=== PATIENT | female | born 1990 ===

== ENCOUNTER 2022-02-22 00:23 | Emergency (ER) | payer SELFPAY ==
--- NOTE | 2022-02-22 02:04 | ER ---
Nurse's Notes [facility] Name: Caroline Baltazar Age: 31 yrs Sex: Female : 1990 Arrival Date: 02/22/2022 Time: 01:03 Bed 20 Private MD: Diagnosis: Abuse of other non-psychoactive substances;Altered mental status, unspecified-RESOLVED Presentation: 02/22 01:36 Chief complaint: EMS states: patient called because she was having some anxiety after ha1 drinking alcohol and chewing chewable [place]. Coronavirus screen:. Ebola Screen: No symptoms or risks identified at this time. Initial Sepsis Screen: Does the patient meet any 2 criteria? No. Patient's initial sepsis screen is negative. Does the patient have a suspected source of infection? No. Patient's initial sepsis screen is negative. Risk Assessment: Do you want to hurt yourself or someone else? Patient reports no desire to harm self or others. Onset of symptoms was February 22, 2022. 01:36 Method Of Arrival: EMS: [facility] ha1 02:00 Acuity: RAMESH 4 ha1 Triage Assessment: 01:56 General: Appears in no apparent distress. comfortable, Behavior is calm, cooperative. ha1 Pain: Denies pain. EENT: No deficits noted. No signs and/or symptoms were reported regarding the EENT system. Neuro: Level of Consciousness is awake, alert, obeys commands, Oriented to person, place, time, situation, Reports anxiety due to alcohol and drug used. Cardiovascular: Patient's skin is warm and dry. Rhythm is sinus tachycardia. Respiratory: Airway is patent Trachea midline Respiratory effort is even, unlabored, Respiratory pattern is regular, symmetrical. GI: No signs and/or symptoms were reported involving the gastrointestinal system. Abdomen is flat, non-distended. : No signs and/or symptoms were reported regarding the genitourinary system. Derm: Skin is normal. Musculoskeletal: Circulation, motion, and sensation intact. Range of motion: intact in all extremities. Historical: - Allergies: 01:56 No Known Allergies; ha1 - Home Meds: 01:56 None [Active]; ha1 - PMHx: 01:56 None; ha1 - Immunization history:: Adult Immunizations up to date. - Family history:: not pertinent. - Social history:: Smoking status: unknown. Screenin:00 Abuse screen: Denies threats or abuse. Denies injuries from another. Nutritional ha1 screening: No deficits noted. Tuberculosis screening: No symptoms or risk factors identified. Fall Risk None identified. Assessment: 02:01 General: see triage. ha1 Vital Signs: 01:36 BP 133 / 65; Pulse 107; Resp 16 S; Temp 98.9; Pulse Ox 97% on R/A; Weight 81.65 kg; ha1 Height 5 ft. 7 in. (170.18 cm); Pain 0/10; 02:01 BP 133 / 65; Pulse 107; Resp 16 S; Pulse Ox 97% on R/A; ha1 01:36 Body Mass Index 28.19 (81.65 kg, 170.18 cm) ha1 ED Course: 01:03 Patient arrived in ED. bp1 01:35 Cesar Carroll MD is Attending Physician. patsy 01:35 Kayli Patiño, RN is Primary Nurse. ha1 01:35 Patient has correct armband on for positive identification. Bed in low position. Call ha1 light in reach. Side rails up X 1. 01:56 Arm band placed on right wrist. ha1 02:01 Triage completed. ha1 02:10 No provider procedures requiring assistance completed. Patient did not have IV access ha1 during this emergency room visit. Administered Medications: No medications were administered Medication: 02:11 VIS not applicable for this client. ha1 Outcome: 02:03 Discharge ordered by . patsy 02:10 Discharged to home ambulatory. ha1 02:10 Condition: stable 02:10 Discharge instructions given to patient. 02:12 Patient left the ED. ha1 Signatures: Cesar Carroll MD MD cha Paniauga, Brittany bp1 Kayli Patiño, RN RN ha1
--- NOTE | 2022-02-22 02:04 | EDPHYS ---
Physician Documentation [facility] Name: Caroline Baltazar Age: 31 yrs Sex: Female : 1990 Arrival Date: 02/22/2022 Time: 01:03 Bed 20 Private MD: ED Physician Cesar Carroll HPI: 02/22 01:47 This 31 yrs old Female presents to ER via EMS with complaints of AMS. patsy 01:47 TOOK CBD EDIBLES. The patient presents with confusion. Onset: The symptoms/episode patsy began/occurred just prior to arrival. Possible causes: DRUGS. Associated signs and symptoms: The patient has no apparent associated signs or symptoms. Onset: The symptoms/episode began/occurred. Patient's baseline: Neuro: alert and fully oriented. Severity of symptoms: At their worst the symptoms were mild in the emergency department the symptoms are unchanged. Historical: - Allergies: 01:56 No Known Allergies; ha1 - Home Meds: 01:56 None [Active]; ha1 - PMHx: 01:56 None; ha1 - Immunization history:: Adult Immunizations up to date. - Family history:: not pertinent. - Social history:: Smoking status: unknown. ROS: 01:47 Constitutional: Negative for fever, chills, and weight loss, Eyes: Negative for injury, patsy pain, redness, and discharge, ENT: Negative for injury, pain, and discharge, Neck: Negative for injury, pain, and swelling, Cardiovascular: Negative for chest pain, palpitations, and edema, Respiratory: Negative for shortness of breath, cough, wheezing, and pleuritic chest pain, Abdomen/GI: Negative for abdominal pain, nausea, vomiting, diarrhea, and constipation, Back: Negative for injury and pain, : Negative for injury, bleeding, discharge, and swelling, MS/Extremity: Negative for injury and deformity, Skin: Negative for injury, rash, and discoloration, Psych: Negative for depression, anxiety, suicide ideation, homicidal ideation, and hallucinations, Allergy/Immunology: Negative for hives, rash, and allergies, Endocrine: Negative for neck swelling, polydipsia, polyuria, polyphagia, and marked weight changes, Hematologic/Lymphatic: Negative for swollen nodes, abnormal bleeding, and unusual bruising. 01:47 Neuro: Positive for altered mental status, weakness. Exam: 01:47 Constitutional: This is a well developed, well nourished patient who is awake, alert, patsy and in no acute distress. Head/Face: Normocephalic, atraumatic. Eyes: Pupils equal round and reactive to light, extra-ocular motions intact. Lids and lashes normal. Conjunctiva and sclera are non-icteric and not injected. Cornea within normal limits. Periorbital areas with no swelling, redness, or edema. ENT: Nares patent. No nasal discharge, no septal abnormalities noted. Tympanic membranes are normal and external auditory canals are clear. Oropharynx with no redness, swelling, or masses, exudates, or evidence of obstruction, uvula midline. Mucous membranes moist. Neck: Trachea midline, no thyromegaly or masses palpated, and no cervical lymphadenopathy. Supple, full range of motion without nuchal rigidity, or vertebral point tenderness. No Meningismus. Chest/axilla: Normal chest wall appearance and motion. Nontender with no deformity. No lesions are appreciated. Cardiovascular: Regular rate and rhythm with a normal S1 and S2. No gallops, murmurs, or rubs. Normal PMI, no JVD. No pulse deficits. Respiratory: Lungs have equal breath sounds bilaterally, clear to auscultation and percussion. No rales, rhonchi or wheezes noted. No increased work of breathing, no retractions or nasal flaring. Abdomen/GI: Soft, non-tender, with normal bowel sounds. No distension or tympany. No guarding or rebound. No evidence of tenderness throughout. Back: No spinal tenderness. No costovertebral tenderness. Full range of motion. Skin: Warm, dry with normal turgor. Normal color with no rashes, no lesions, and no evidence of cellulitis. MS/ Extremity: Pulses equal, no cyanosis. Neurovascular intact. Full, normal range of motion. Neuro: Awake and alert, GCS 15, oriented to person, place, time, and situation. Cranial nerves II-XII grossly intact. Motor strength 5/5 in all extremities. Sensory grossly intact. Cerebellar exam normal. Normal gait. Psych: Awake, alert, with orientation to person, place and time. Behavior, mood, and affect are within normal limits. Vital Signs: 01:36 BP 133 / 65; Pulse 107; Resp 16 S; Temp 98.9; Pulse Ox 97% on R/A; Weight 81.65 kg; ha1 Height 5 ft. 7 in. (170.18 cm); Pain 0/10; 02:01 BP 133 / 65; Pulse 107; Resp 16 S; Pulse Ox 97% on R/A; ha1 01:36 Body Mass Index 28.19 (81.65 kg, 170.18 cm) ha1 MDM: 01:35 Patient medically screened. patsy 02:01 Differential Diagnosis altered mental status. Differential Diagnosis: electrolyte patsy abnormality, alcohol intoxication, hypoglycemia, pneumonia. Data reviewed: vital signs, nurses notes. Data interpreted: night monitor: rate is 107 beats/min, rhythm is regular, Pulse oximetry: on room air is 97 %. Counseling: I had a detailed discussion with the patient and/or guardian regarding: the historical points, exam findings, and any diagnostic results supporting the discharge/admit diagnosis, the need for outpatient follow up, for definitive care, a family practitioner. Administered Medications: No medications were administered Disposition Summary: 02/22/22 02:03 Discharge Ordered Location: Home patsy Problem: new patsy Symptoms: have improved patsy Condition: Stable patsy Diagnosis - Abuse of other non-psychoactive substances patsy - Altered mental status, unspecified - RESOLVED patsy Followup: patsy - With: Private Physician - When: 2 - 3 days - Reason: Recheck today's complaints, Continuance of care, Re-evaluation by your physician Discharge Instructions: - Discharge Summary Sheet patsy - Confusion patsy - Substance Use Disorder and Mental Illness patsy - Illegal Drug Use Information, Adult patsy Forms: - Medication Reconciliation Form patsy - Thank You Letter patsy - Antibiotic Education patsy - Prescription Opioid Use patsy Signatures: Cesar Carroll MD MD cha Ayala, Heidy, RN RN ha1
[2022-02-22 03:44] VITALS: BP 133/65; TEMP 98.9; O2SAT 97
== END 2022-02-22 02:12 | disposition home or self-care (01) ==
LOC: ER 00:23
DX: F55.8 Abuse of other non-psychoactive substances (principal)
CPT/HCPCS: 99284